=== PATIENT | male | born 1950 | race Caucasian/White ===

== ENCOUNTER → 2019-10-19 15:35 | Outpatient (CLI) | payer MEDICARE, OTHER, SELFPAY ==
--- NOTE | 2019-10-19 | DI.RAD.S_ITS ---
PROCEDURE: XR KNEE RT 3V INDICATIONS: WEIGHTBEARING BILATERAL KNEE PAIN TECHNIQUE: 3 views of the knee were acquired. COMPARISON: None. FINDINGS: Bones: No fractures or dislocations. No suspicious bony lesions. Scattered degenerative subchondral sclerosis and spurring. Mild narrowing of the medial and patellofemoral joint space. Soft tissues: Small joint effusion. No suspicious soft tissue calcifications. IMPRESSION: Mild right knee joint degeneration Dictated by: Josh Marie M.D. on 10/19/2019 at 17:13 Approved by: Josh Marie M.D. on 10/19/2019 at 17:15
--- NOTE | 2019-10-19 15:40 | DI.RAD.S_ITS ---
PROCEDURE: XR KNEE LT 3V INDICATIONS: BILATERAL KNEE PAIN TECHNIQUE: 3 views of the knee were acquired. COMPARISON: [facility], CR, XR KNEE RT 3V, 10/19/2019, 15:39. FINDINGS: Bones: No fractures or dislocations. No suspicious bony lesions. Prepatellar soft tissue swelling. Scattered degenerative subchondral sclerosis and spurring. Mild narrowing of the medial and patellofemoral joint space. IMPRESSION: Mild left knee joint degeneration. Prepatellar soft tissue swelling raising the possibility of bursitis Dictated by: Josh Marie M.D. on 10/19/2019 at 17:15 Approved by: Josh Marie M.D. on 10/19/2019 at 17:16
== END ==
PROVIDERS: Family Provider Family Medicine; PCP Family Medicine; Referring Provider Family Medicine; Visit Provider Family Medicine
DX: M25.561 Pain in right knee (principal); M25.562 Pain in left knee; M17.0 Bilateral primary osteoarthritis of knee
CPT/HCPCS: 73562

== ENCOUNTER → 2021-05-21 11:19 | Outpatient (CLI) | payer MEDICARE, OTHER, SELFPAY ==
--- NOTE | 2021-05-21 | DI.RAD.S_ITS ---
PROCEDURE: XR CERVICAL SPINE 4V OR 5V INDICATIONS: NECK PAIN TECHNIQUE: 4 views of the cervical spine acquired. COMPARISON: None. FINDINGS: Bones: No fractures or dislocations to the C7 level. Oblique images demonstrate no bony foraminal stenoses. Multilevel disc space narrowing and endplate osteophyte formation, worst at C4-C5, C5-C6, and C6-C7, indicating degenerative disc disease. Facet hypertrophy throughout the mid and lower lumbar spine. High-grade left-sided C4-C5 and C5-C6 foraminal stenosis. Moderate right-sided C3-C4 foraminal stenosis. Soft tissues: No prevertebral soft tissue swelling. IMPRESSION: 1. Multilevel degenerative disc and facet disease. Further assessment with MRI is recommended. 2. No acute fracture. No osseous lesion. If symptoms and/or clinical suspicion for pathology persist, further assessment with repeat, or advanced imaging (e.g., CT, MRI, or bone scan) may be helpful for further assessment. Dictated by: Vikram Summers M.D. on 05/21/2021 at 11:59 Approved by: Vikram Summers M.D. on 05/21/2021 at 12:00
== END ==
PROVIDERS: Family Provider Family Medicine; PCP Family Medicine; Referring Provider Chiropractor; Visit Provider Chiropractor
DX: M99.01 Segmental and somatic dysfunction of cervical region (principal); M50.321 Other cervical disc degeneration at C4-C5 level; M47.812 Spondylosis without myelopathy or radiculopathy, cervical region; M48.02 Spinal stenosis, cervical region
CPT/HCPCS: 72050

== ENCOUNTER 2022-01-26 19:11 | Emergency (ER) | payer MEDICARE, OTHER, SELFPAY ==
[2022-01-26 19:20] VITALS: BP 116/72; PULSE 80; RESP 17; TEMP 37.2; O2SAT 95; BMI 25.1
--- NOTE | 2022-01-26 19:28 | DI.US.S_ITS ---
PROCEDURE: US PERIPH VENOUS LOW EXTREM LT INDICATIONS: left leg pain behind knee and into thigh, no injury, r/o dvt TECHNIQUE: Real-time imaging, as well as color and pulse Doppler interrogation, were performed of the lower extremity deep veins from the inguinal ligament to the popliteal fossa. COMPARISON: None. FINDINGS: The common femoral, femoral and popliteal veins are normally compressible, and free of intraluminal thrombus. Color and pulse Doppler demonstrate normal phasic intraluminal flow. There is normal augmentation response to distal compression maneuver. IMPRESSION: 1. No evidence of deep venous thrombosis in the left lower extremity. Dictated by: Rolando Hammond M.D. on 01/26/2022 at 20:32 Approved by: Rolando Hammond M.D. on 01/26/2022 at 20:33
--- NOTE | 2022-01-26 20:41 | ED_ITS ---
HPI - Extremity Problem General Chief complaint: Extremity Problem,Nontraumatic Stated complaint: needs doppler done on left leg (nurse advise) Time Seen by Provider: 01/26/22 20:11 Source: patient Mode of arrival: Wheelchair History of Present Illness HPI Narrative: Patient is a 69-year-old male history of hypertension who presents with left thigh pain. He has been sitting a lot more than normal. His mom's been in the ICU and unfortunately just . Over last 24 hours he has had increasing pain it hurts to walk it is a deep ache and throbbing. He has walking some but certainly more sedentary than normal. states that she notices more swelling of his leg. No fever or chills. He denies any injury. He took aspirin [place] and ibuprofen without any relief in pain. Related Data Home Medications Medication Instructions Recorded Confirmed ECHINACEA/GOLDENSEAL (ECHINACEA 1 cap PO QDAY ##0 09/24/12 GOLDENSEAL) [MULTIVITAMIN] PO QDAY ##0 09/24/12 [VITAMIN D] PO QDAY ##0 09/24/12 ascorbic acid (vitamin C) 500 mg 500 mg PO QDAY ##0 09/24/12 tablet Previous Rx's Medication Instructions Recorded amoxicillin 875 mg-potassium 875 mg PO BID #20 tabs 04/28/16 clavulanate 125 mg tablet (Augmentin) hydrocodone 5 mg-acetaminophen 325 1 tab PO Q6H PRN pain #10 tabs 01/26/22 mg tablet Allergies Allergy/AdvReac Type Severity Reaction Status Date / Time ceftriaxone [CEFTRIAXONE] Allergy Unknown Unverified 11/18/17 13:06 Review of Systems Review of Systems Narrative: GENERAL: Denies chills,fever HEENT: Denies throat pain RESPIRATORY: Denies dyspnea, cough, wheezing CARDIOVASCULAR: Denies chest pain, palpitations GASTROINTESTINAL: Denies nausea, vomiting MUSCULOSKELETAL: See HPI SKIN: No rash, no laceration, no pruritus NEUROLOGIC: Denies weakness, dizziness, headache, numbness 8 point review of systems is negative except for those stated above and HPI Patient History Social History Smoking Status: Never smoker Smoking Status: Never smoker alcohol intake frequency: 0-2 drinks per day Substance Use Type: marijuana Exam Initial Vital Signs Initial Vital Signs: Vital Signs Temperature 98.9 F 01/26/22 19:20 Pulse Rate 80 01/26/22 19:20 Respiratory Rate 17 01/26/22 19:20 Blood Pressure 116/72 01/26/22 19:20 Pulse Oximetry 95 01/26/22 19:20 Oxygen Delivery Method 01/26/22 19:20 GENERAL: Well-appearing, well-nourished and in no acute distress. CARDIOVASCULAR: peripheral pulses in tact, cap refill <2 sec RESPIRATORY: No respiratory distress, speaks in full sentences without difficulty EXTREMITIES: Normal range of motion, no clubbing or edema. Neurovascularly i ntact Left leg no significant swelling even 1 pointed out to do not appreciated. No erythema no calf pain. No rash. Feet are warm NEUROLOGICAL: Cranial nerves II through XII grossly intact. Normal gait and speech. SKIN: Warm, dry, no petechiae, no rashes or lesions. Course Orders Ordered: ED Orders 01/26/22 19:28 US periph venous low extrem lt Stat Discontinued Medications Hydrocodone Bitart/Acetaminophen (Hydrocodone/Acet 5/325 Prepack) 1 bottle MISC SEEINSTR ONE Stop: 01/26/22 21:00 Last Admin: 01/26/22 21:03 Dose: 1 bottle Documented By: ANTHONY Vital Signs Vital signs: Vital Signs - 8 hr 01/26/22 19:20 Temperature 98.9 F Pulse Rate 80 Respiratory Rate 17 Blood Pressure 116/72 Pulse Oximetry 95 Oxygen Delivery Method Room Air MDM - Extremity (Nontraumatic) Imaging Data US - DVT: Radiologist's Impression: [address] [address] Ultrasound Report Signed Patient: Frank Giron MR#: [id number] : 1950 Acct:[id number] Age/Sex: 71 / M Date of Service: 01/26/22 Loc: ED Accession Number: [id number] ?? Procedure: US periph venous low extrem lt Ordering Provider: Roxanne Chow D.O. PROCEDURE:? US PERIPH VENOUS LOW EXTREM LT ? INDICATIONS:? left leg pain behind knee and into thigh, no injury, r/o dvt ? TECHNIQUE:? Real-time imaging, as well as color and pulse Doppler interrogation, were performed of the lower extremity deep veins from the inguinal ligament to the popliteal fossa.? ? COMPARISON:? None. ? FINDINGS:? The common femoral, femoral and popliteal veins are normally compressible, and free of intraluminal thrombus.? Color and pulse Doppler demonstrate normal phasic intraluminal flow.? There is normal augmentation response to distal compression maneuver. ? ? IMPRESSION:? ? 1. No evidence of deep venous thrombosis in the left lower extremity. ? ? Dictated by: Rolando Hammond M.D. on 01/26/2022 at 20:32 ? ? Approved by: Rolando Hammond M.D. on 01/26/2022 at 20:33 ? MDM Narrative Medical decision making narrative: The patient is having 24 hours of a left thigh pain. No obvious swelling DVT study is negative. Possible early small DVT. He has been more sedentary than usual. Does not seem like sciatic pain or musculoskeletal pain no recent injury. Discharge Plan Departure Patient Disposition: Home Clinical Impression: Left thigh pain Instructions: DI for Leg Pain Activity Restrictions/Additional Instructions: *You have been diagnosed with leg pain *What to do: At this time no evidence of DVT on ultrasound. However recommend compression socks and repeat ultrasound about 5 days. Please monitor closely for any worsening swelling redness or pain *Continue to take medications as directed [place] 1 tablet every 6 hours if needed for pain *Follow up with your primary care provider in 2-3 days or call [phone] *Return to ER if you should have increased swelling pain chest pain shortness of breath or or any new, worsening or concerning symptoms CONTROLLED SUBSTANCE DISCHARGE (Narcotoic/benzodiazepine/Flexeril/Phenergan) 1. You have been prescribed narcotic medications, it does have acetaminophen/Tylenol/paracetamol in it, DO NOT TAKE MORE THAN 4,00mg in 24 hours of Tylenol. TRAMADOL DOES NOT CONTAIN TYLENOL 2. Please understand that we cannot provide further refills of narcotics, benzodiazepines or controlled substances through the ED and her pain management will need to be through your provider. 3. While on these medications you cannot drive or operate heavy machinery. 4. You cannot sign legal documents or perform any duties such as this. 5. As long as you're taking opiate pain medications he should also be taking a stool softener such as Colace, Dulcolax, MiraLAX or prune juice, to help avoid constipation. Prescriptions: New hydrocodone-acetaminophen 5-325 mg tablet 1 tab PO Q6H PRN (Reason: pain) Qty: 10 0RF No Action [MULTIVITAMIN] PO QDAY Qty: 0 [VITAMIN D] PO QDAY Qty: 0 ascorbic acid (vitamin C) 500 MG tablet 500 mg PO QDAY Qty: 0 ECHINACEA/GOLDENSEAL (ECHINACEA GOLDENSEAL) 1 cap PO QDAY Qty: 0 amoxicillin-pot clavulanate [Augmentin] 875 MG/125 MG tablet 875 mg PO BID Qty: 20 0RF Referrals: Glenroy Camarena MD [Primary Care Provider] - Visit Report Forms: Patient Portal/API
[2022-01-26] MEDS: HYDROCODONE/ACET 5/325 PREPACK 1 BOTTLE MISC (21:03)
== END 2022-01-26 21:06 | disposition home or self-care (01) ==
PROVIDERS: Emergency Provider Emergency Medicine; Family Provider Family Medicine; PCP Family Medicine
DX: M79.652 Pain in left thigh (principal)
CPT/HCPCS: 93971; 99281; 99283

== ENCOUNTER 2022-04-15 11:26 | Day surgery (SDC) | payer MEDICARE, OTHER, SELFPAY ==
[2022-04-07 14:38] VITALS: BMI 25.1
[2022-04-15] VITALS (9 sets, daily range): BP systolic 106–129; BP diastolic 67–83; PULSE 54–64; RESP 10–23; TEMP 36.2–36.8; O2SAT 94–99; BMI 25.1
[2022-04-15] MEDS: LACTATED RINGERS 1,000 ML 100 ML IV ×2 (11:49→16:29)
[2022-04-15 12:01] LABS: COVID19 -Nasal RAPID Negative (Negative)
[2022-04-15] MEDS: ACETAMINOPHEN 325 MG TABLET 975 MG PO (13:02)
--- NOTE | 2022-04-15 13:33 | PM.PREOP ---
Pre-operative Note COVID-19 COVID-19 status: Negative Result date/Date tested (Pos, Neg/Pending): 04/11/22 Interval Note History & Physical reviewed/Exam performed by Physician: Yes Changes to H&P: No ASA Class (for procedural sedation): II
[2022-04-15] MEDS: CLINDAMYCIN 900 MG/50 ML PIGGYBACK 50 MG IV (14:27)
[2022-04-15] MEDS: LIDOCAINE 2% W/EPI INJ 20 ML INJ (14:35)
--- NOTE | 2022-04-15 14:39 | SUR.OPER ---
Supine on padded OR bed, head on pillow, arms secured on padded arm boards at <90 degrees abduction, legs uncrossed, safety belt at thigh, tape over blanket over lower legs. Position approved by surgeon and anesthesia
--- NOTE | 2022-04-15 15:52 | PM.OP.1 ---
Operative Date/Time/Diagnoses Date of procedure: 04/15/22 Time of procedure: 15:52 Pre-op diagnosis: Left inguinal hernia Procedure & Clinicians Procedure: Open left inguinal hernia repair with mesh Same procedure as scheduled: Yes Surgeon: Bear Cohen Anesthesia Type: General Operative Notes Procedure in detail: Preoperative antibiotic was administered. The patient was brought to the operating room and placed on the table in supine position general anesthesia was induced. The left groin was prepped and draped in the normal fashion and a time-out was performed. Roughly 10 mL of local anesthetic were injected into the skin and subcutaneous adipose tissue over the left groin. A 6 cm incision was made over the left inguinal canal. Dissection was carried down through the subcutaneous adipose tissue. A bridging vein was cauterized. We exposed the external oblique aponeurosis in the direction of the fibers. Additional local was injected deep to the aponeurosis. A 15 blade scalpel was used to caryn the external oblique aponeurosis. Metzenbaum scissors were used to carefully open the aponeurosis in the direction of the fibers taking care not to injure the underlying ilioinguinal nerve. We completely exposed the inguinal canal. The cord was dissected free from the inguinal ligament and floor of the inguinal canal and the external oblique aponeurosis was dissected off of the internal oblique taking care not to injure the hypogastric nerve. We encircled the cord with a Dony drain for retraction. There was a indirect left inguinal hernia. The sac was small an empty but there was a lot of bulky mesenteric or preperitoneal fatty tissue alongside the cord which was dissected free and reduced. We placed a large polypropylene mesh over the inguinal canal floor. The mesh was secured with multiple interrupted 3-0 Prolene sutures to the pubic tubercle and shelving edge of the inguinal ligament as well as to the conjoint tendon medially. We overlapped the tails to recreate an internal ring and secured the medial tail to the inguinal ligament with additional sutures. We injected some more local into the fatty tissue in the inguinal canal and cord. Finally, we removed the [address] drain and closed the external oblique fascia with a running 3-0 Vicryl suture. Skin was closed with interrupted 3-0 Vicryl dermal sutures and a running 4 Monocryl subcuticular stitch. EBL 5 mL The patient was awakened and brought to recovery room. Post-operative Condition: stable Disposition: PACU
[2022-04-15] MEDS: OXYCODONE IR 5 MG TABLET PO (16:19)
== END 2022-04-15 17:01 | disposition home or self-care (01) ==
PROVIDERS: Family Provider Family Medicine; PCP Family Medicine; Referring Provider Surgery; Visit Provider Surgery
PROC: (CPT 49505; principal; 2022-04-15 13:15)
DX: K40.90 Unilateral inguinal hernia, without obstruction or gangrene, not specified as recurrent (principal); I10 Essential (primary) hypertension; Z20.822 Contact with and (suspected) exposure to COVID-19
CPT/HCPCS: 49505; 87635; C9803; J1100; J1885; J2250; J2405; J2704; J3010

== ENCOUNTER → 2022-08-12 14:22 | Outpatient (CLI) | payer MEDICARE, OTHER, SELFPAY ==
--- NOTE | 2022-08-20 15:11 | DIAB.MNT ---
Initial Diabetes Medical Nutrition Therapy Assessment Name: Frank Giron (Mian) Date: 08/12/22 Time: 230-320p Dx: Type II Diabetes Provider: Nicol Mian presents for initial visit regarding T2DM. New diagnosis with original HgA1c 7% in 01/2022 and elevated LDL 132. 05/2022 HgA1c improved to 6.7%. +FH of DM with both parents, brother and sister. States the rest of his family was dx with Dm at a much younger age. Feels his healthy lifestyle has pushed this dx off for him until now. Mian reports he would really like to stay off any DM medications. 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 Feels he has good support and medical counseling department chair at home. Mian endorses cutting out most carbohydrates and beer for 2 months. Has questions regarding a carnivore diet rec'd by his chiropractor (only eating meat, no veggies or CHO). Diet recall indicates potential for higher saturated fat intake and limited fiber. Denies any BM issues. Endorses -25# since cutting out beer Diet Recall: 8-9a: 2 eggs, 2 chicken sausage, cottage cheese 12-1p: nuts, jerky, celery, PB, summer sausage 230-3p: nothing or 4-5c popcorn with butter 530-630p: veggies, meat Beverages: 3c coffee with half n half, 16oz x 3 water, 4 servings of wine Anthropometrics: Ht: 5'10 Wt: 165# reported Physical Activity: No intentional exercise program. Endorses daily physical activity with projects. Self-Monitoring Blood Glucose: None. Waiting on meter from pharmacy currently. Diabetes Medications: None Pertinent Labs: 01/2022 HgA1c 7% LDL 132 05/2022 6.7% Past Medical History: (Last Reviewed 05/05/22 @ 11:07 by Farrah Romero RN) Hypertension Nutrition Rx: Heart healthy/CCD Nutrition Diagnosis: - Predicted excessive saturated fat intake r/t limited all CHO and increased meat/cheese intake aeb diet recall - Excessive ETOH intake r/t >2 servings per day aeb diet recall Intervention: This participant was very receptive. Provided appropriate educational handouts. Discussed the following topics: Completed intake assessment. Discussed barriers to care. Importance of self-monitoring, how often, and when to check. Suggested checking at different times to evaluate meals hgA1c goals and recommendations Complex vs simple CHO Importance of fiber for health, DM, BM, and lipids Heart health nutrition Role of physical activity ETOH recommendations Pro/cons to oral DM medications Created SMART goals for patient self-care and success. Goals: Check BG 1-2 x per day FBG and/or 1-2 hour pc Follow-up: OSBALDO YEPEZ follow-up in 3-4 weeks Marva Geller RDN, [facility] Certified Diabetes Care and Sales And Service Specialist P: [phone] Thank you for this referral
== END ==
PROVIDERS: Family Provider Family Medicine; PCP Family Medicine; Referring Provider Family Medicine; Visit Provider Family Medicine
DX: E11.9 Type 2 diabetes mellitus without complications (principal); Z71.3 Dietary counseling and surveillance
CPT/HCPCS: 97802

== ENCOUNTER → 2022-09-16 13:43 | Outpatient (CLI) | payer MEDICARE, OTHER, SELFPAY ==
--- NOTE | 2022-10-06 13:27 | DIAB.MNTFU ---
Follow-up Diabetes Medical Nutrition Therapy Assessment Name: Frank Giron (Mian) Date: 09/16/22 Time: 2-240p Dx: Type II Diabetes Mian presents for follow-up DM visit. States he has not completed a new HgA1c yet, but plans to update this RD once he has new results this month. Continues on low carb diet. Some high saturated fat intake (salami, cheese, red meat), concerns for elevated cholesterol. Does incorporate some high fiber foods, ie popcorn, nuts, beans. Tries to eat low Na options. Has cut back on PB lately. Diet Recall: B: eggs, cheese, veggie L: nuts, popcorn, cheese, salami D: meatballs, salad with beans Beverages: water, coffee, wine x 2 servings Anthropometrics: Ht: 5'10 Wt: 165-168# reported Weight history: -20# from [facility] per report,. Sustained wt since last visit. Physical Activity: Joined a gym. Treadmill 3x per week, vigorous per report. Self-Monitoring Blood Glucose: Date Pre Post Pre Post Pre Post HS 09/05 116 09/06 115 09/07 121 09/08 108 09/09 114 09/10 123 09/11 1 Diabetes Medications: Pertinent Labs: Past Medical History: (Last Reviewed 05/05/22 @ 11:07 by Farrah Romero RN) Hypertension Nutrition Rx: Carbohydrates: Daily: Meal: Snack: Nutrition Diagnosis: Intervention: This participant was very receptive. Provided appropriate educational handouts. Discussed the following topics: Blood sugar review and trends. Impact of food intake on results. Plate Method, impact of macronutrients on blood sugar, meal timing, carbohydrate counting, pairing macronutrients and spreading out carbohydrates for better blood glucose management Heart health nutrition: fats, fiber, and sodium Eating out and grocery shopping tips Meal planning and carb counting review Physical activity plan and progress Created SMART goals for patient self-care and success. Goals: Follow-up: OSBALDO YEPEZ follow-up in 2-3 weeks Marva Geller RDN, [facility] Certified Diabetes Care and Fountain Roller Assembler P: [phone] Thank you for this referral
--- NOTE | 2022-10-06 13:37 | DIAB.MNTFU ---
Follow-up Diabetes Medical Nutrition Therapy Assessment Name: Frank Giron (Mian) Date: 09/16/22 Time: 2-240p Dx: Type II Diabetes Provider: Nicol Pappas presents for follow-up DM visit. States he has not completed a new HgA1c yet, but plans to update this RD once he has new results this month. Continues on low carb diet. Some high saturated fat intake (salami, cheese, red meat), concerns for elevated cholesterol. Does incorporate some high fiber foods, ie popcorn, nuts, beans. Tries to eat low Na options. Has cut back on PB lately. Diet Recall: B: eggs, cheese, veggie L: nuts, popcorn, cheese, salami D: meatballs, salad with beans Beverages: 32oz water, 3c coffee, wine x 2 servings Anthropometrics: Ht: 5'10 Wt: 165-168# reported Weight history: -20# from [facility] per report,. Sustained wt since last visit. Physical Activity: Joined a gym. Treadmill 3x per week, vigorous per report. Self-Monitoring Blood Glucose: Started checking BG and all in goal. Date Pre Post Pre Post Pre Post HS 09/05 116 09/06 115 09/07 121 09/08 108 09/09 114 09/10 123 09/11 122 Diabetes Medications: None Pertinent Labs: 01/2022 HgA1c 7% LDL 132 05/2022 6.7% Past Medical History: (Last Reviewed 05/05/22 @ 11:07 by Farrah Romero RN) Hypertension Nutrition Rx: Heart healthy/CCD Nutrition Diagnosis: - Predicted excessive saturated fat intake r/t limited all CHO and increased meat/cheese intake aeb diet recall- continued - Excessive ETOH intake r/t >2 servings per day aeb diet recall- improved - Predicted inadequate water intake r/t coffee replacing water aeb diet recall- new Intervention: This participant was very receptive. Provided appropriate educational handouts. Discussed the following topics: Reviewed saturated fat and fiber intake and impact on lipids Encouraged adequate water intake Pro/cons to oral DM medications vs statin if cholesterol cont to be elevated Created SMART goals for patient self-care and success. Goals: Check BG 1-2 x per day FBG and/or 1-2 hour pc- met Restart celery and PB- new Aim for 1/2c beans daily to support fiber intake- new Aim for 5c+ of water daily- new Follow-up: OSBALDO YEPEZ follow-up prnHardy Pappas plans to call for follow-up as needed. Marva Geller, OSBALDO, [facility] Certified Diabetes Care and Cook Chill Technician P: [phone] Thank you for this referral
== END ==
PROVIDERS: Family Provider Family Medicine; PCP Family Medicine; Referring Provider Family Medicine; Visit Provider Family Medicine
DX: E11.9 Type 2 diabetes mellitus without complications (principal); Z71.3 Dietary counseling and surveillance; I10 Essential (primary) hypertension
CPT/HCPCS: 97803

== ENCOUNTER → 2023-11-05 08:00 | Outpatient (CLI) | payer MEDICARE, OTHER, SELFPAY | LOC: LAB 11-06 09:54 | PROVIDERS: Family Provider Family Medicine; PCP Family Medicine; Referring Provider Family Medicine; Visit Provider Surgery | DX: Z53.9 Procedure and treatment not carried out, unspecified reason (principal) ==

== ENCOUNTER → 2023-12-01 10:29 | Outpatient (CLI) | payer MEDICARE, OTHER, SELFPAY | LOC: RESP 10:32 | PROVIDERS: Family Provider Family Medicine; PCP Family Medicine; Referring Provider Plastic Surgery; Visit Provider Plastic Surgery | DX: I10 Essential (primary) hypertension (principal) | CPT/HCPCS: 93005 ==

== ENCOUNTER 2023-12-08 08:45 | Day surgery (SDC) | payer MEDICARE, OTHER, SELFPAY ==
--- NOTE | 2023-12-08 | PATH_ITS ---
[facility] Accession Number: [id number] No. of containers..01 Tissue . 01 Material submitted: . colon - ASCENDING COLON POLYP . 01 Diagnosis: A. ASCENDING COLON POLYP, POLYPECTOMY: Tubular adenoma. MRV 12/14/2023 1502 Local . 01 Electronically signed: . Becca Fowler MD, Pathologist NPI- [id number] . 01 Gross description: . ASCENDING COLON POLYP: Received in formalin is 1 fragment(s) of mtz, soft tissue measuring 0.2 x 0.2 x 0.1 cm submitted entirely in 1 cassette(s) /PITA 12/10/2023 0140 Local . 01 Microscopic: . Deeper Levels examined. . 01 Pathologist provided ICD-10: D12.6 . 01 CPT . 371569 Specimen Comment: A courtesy copy of this report has been sent to [phone] Performed at: 01 [facility] [address] [place] [address], [place], [place] [id number] MD Rolando Nicole MD Phone: [phone]
[2023-12-08 09:05] VITALS: BP 136/71; PULSE 65; RESP 17; TEMP 36.1; O2SAT 98
[2023-12-08] MEDS: LACTATED RINGERS 1,000 ML 42 ML IV (09:11)
--- NOTE | 2023-12-08 09:45 | P.HP_ITS ---
History of Present Illness History of Present Illness Date Patient Seen: 12/08/23 Time Patient Seen: 09:45 Chief complaint: Colonoscopy Narrative: 72-year-old man here for screening colonoscopy. Personal history of colonic polyps last colonoscopy 5 years ago. No abdominal concerns today. No family history of intestinal malignancy. [facility], [facility] Medical History Inguinal hernia Carpal tunnel syndrome of right wrist Hypertension Social History household members: spouse Smoking Status: Never smoker alcohol intake: current Meds Home Medications and Allergies Home Medications Medication Instructions Recorded Confirmed Type [MULTIVITAMIN] PO QDAY ##0 09/24/12 04/07/22 History [VITAMIN D] PO QDAY ##0 09/24/12 04/07/22 History ascorbic acid (vitamin C) 500 mg 500 mg PO QDAY ##0 09/24/12 04/07/22 History tablet acyclovir 800 mg tablet 800 mg PO TID 04/07/22 04/07/22 History lisinopril 10 mg tablet 10 mg PO DAILY 04/07/22 12/08/23 History omeprazole 20 mg capsule,delayed 20 mg PO DAILY 04/07/22 12/08/23 History release sodium,potassium,mag sulfates 17.5 See Rx Instructions PO .COMPLEX 10/20/23 Rx gram-3.13 gram-1.6 gram oral soln #354 mL (Suprep Bowel Prep Kit) Allergies Allergy/AdvReac Type Severity Reaction Status Date / Time ceftriaxone [CEFTRIAXONE] Allergy Mild Hives Verified 12/08/23 09:01 Exam Vital Signs (past 8 hours): - 12/08/23 09:05 Temperature 97 F L Pulse Rate 65 Respiratory Rate 17 Blood Pressure 136/71 Pulse Oximetry 98 Oxygen Delivery Method Room Air Oxygen Delivery Method Room Air Narrative Exam Narrative: General adult man alert oriented no acute distress Chest nonlabored respiration Extremities warm well perfused Assessment & Plan Assessment & Plan narrative: The patient requires colorectal screening and colonoscopy is recommended. Technical details were discussed. Risks, benefits, alternatives explained. Risks including but not limited to myocardial infarction, aspiration, bleeding, pain, missed lesion, incomplete examination, need for further radiographic studies, intestinal injury, and need for major abdominal surgery were discussed. All questions were answered to their satisfaction, and they are in agreement with this plan.
[2023-12-08 10:10] VITALS: BP 110/68; PULSE 64; RESP 13; TEMP 36.2; O2SAT 94
--- NOTE | 2023-12-08 10:12 | P.OP.COLON_ITS ---
Operative Date/Time/Diagnoses Date of procedure: 12/08/23 Time of procedure: 10:12 Pre-op diagnosis: Personal history of colonic polyps Procedure & Clinicians Study performed: Screening Indications: Colorectal screening Surgeon: Yung Longoria Procedure Notes Procedure in detail: The history and physical was performed/updated and the patient is ASA class is 2. The procedure was discussed in detail with the patient. Potential risks complications including infection, bleeding, missed diagnosis, perforation, need for surgery, and were explained. Their questions were answered and informed consent was obtained. Patient was brought to the procedure room and placed standard monitoring equipment. The patient's vital signs were monitored continuously throughout the entire procedure. Prior to starting time-out was performed. The patient was placed in the left lateral recumbent position. Procedural sedation was administered by anesthesia. Examination began with a thorough inspection of the perianal area there was no evidence of fissures, fistulae, external hemorrhoids or cutaneous malignancy. The colonoscopy scope was then placed into the anal canal and was advanced to the cecum, which was identified by the ileocecal valve, the appendiceal orifice and the confluence of the taenia. The scope was then slowly withdrawn examining colon thoroughly in all directions, irrigating it of any residual stool. The scope was retroflexed within the rectum The patient tolerated the procedure well. They will be discharged once criteria are met. The prep was of fair quality. The withdrawl time was 7 minutes. FINDINGS * Ascending colon 5 mm polyp removed with biopsy forceps. * Parikh diverticulosis * Internal hemorrhoids Specimen(s): other (Ascending colon polyp) Impression: Colonic polyp x1 Post-procedure Recommendations: High fiber diet Plan for aftercare: Follow-up is dependent on pathology findings. Disposition: same day surgery
[2023-12-08 10:16] VITALS: BP 111/70; PULSE 64; RESP 14; O2SAT 94
[2023-12-08 10:20] VITALS: BP 112/71; PULSE 58; RESP 14; O2SAT 95
[2023-12-08 10:25] VITALS: BP 100/63; PULSE 72; RESP 14; O2SAT 97
[2023-12-08 10:28] VITALS: BP 104/62; PULSE 60; RESP 16; O2SAT 99
== END 2023-12-08 10:40 | disposition home or self-care (01) ==
PROVIDERS: Surgery; Family Provider Family Medicine; PCP Family Medicine; Referring Provider Surgery; Visit Provider Surgery
PROC: 0DJD8ZZ Inspection of Lower Intestinal Tract, Via Natural or Artificial Opening Endoscopic (ICD-10-PCS; CPT 45378; principal; 2023-12-08 09:45)
DX: Z12.11 Encounter for screening for malignant neoplasm of colon (principal); Z86.010 Personal history of colon polyps; K57.30 Diverticulosis of large intestine without perforation or abscess without bleeding; K64.8 Other hemorrhoids; D12.2 Benign neoplasm of ascending colon
CPT/HCPCS: 45380; J2704

== ENCOUNTER → 2024-10-06 11:18 | Outpatient (CLI) | payer MEDICARE, OTHER, SELFPAY ==
--- NOTE | 2024-10-06 11:20 | DI.RAD.S_ITS ---
PROCEDURE: XR FOOT RT 2V INDICATIONS: Gout, unspecified TECHNIQUE: 3 views of the foot were acquired. COMPARISON: None. FINDINGS: Bones: No fractures or dislocations. No suspicious bony lesions. Prominent 1st MTP and 1st DIP degenerative narrowing. Small periarticular osteophytes are present. Small areas of subchondral lucency are present. In addition, small areas of subchondral lucency are also noted at the 5th DIP and PIP joints. Calcaneal spur. Soft tissues: No tibiotalar joint effusion. Achilles tendon appears normal. IMPRESSION: Areas of subchondral lucency as above. While these could represent erosions given history of gout, other etiology such as subchondral cysts cannot be definitively excluded. Dictated by: Gavi Simons M.D. on 10/06/2024 at 16:59 Approved by: Gavi Simons M.D. on 10/06/2024 at 17:00
--- NOTE | 2024-10-06 11:21 | DI.RAD.S_ITS ---
PROCEDURE: XR FOOT LT 2V INDICATIONS: Gout, unspecified TECHNIQUE: 3 views of the foot were acquired. COMPARISON: None. FINDINGS: Bones: Severe 1st MTP d narrowing with subchondral sclerosis and periarticular osteophytes. Small areas of subchondral lucency are present at the 1st DIP joint and to a lesser degree the 1st PIP joint. Small lucencies are also present at the DIP joint of the 3rd and 5th digits. Soft tissues: No tibiotalar joint effusion. Achilles tendon appears normal. IMPRESSION: Scattered areas of lucency possibly representing rosea is given history of gout. However, cannot exclude arthritic cystic change. Dictated by: Gavi Simons M.D. on 10/06/2024 at 17:00 Approved by: Gavi Simons M.D. on 10/06/2024 at 17:00
== END ==
PROVIDERS: Family Provider Family Medicine; PCP Family Medicine; Referring Provider Family Medicine; Visit Provider Family Medicine
DX: M10.9 Gout, unspecified (principal)
CPT/HCPCS: 73620

== ENCOUNTER → 2024-11-30 07:31 | Outpatient (CLI) | payer MEDICARE, OTHER, SELFPAY ==
--- NOTE | 2024-11-30 07:34 | DI.MRI.S_ITS ---
PROCEDURE: MR ANKLE RT WO CON INDICATIONS: right ankle pain TECHNIQUE: Noncontrast sagittal T1 spin echo and T2 fast spin echo with fat saturation, axial proton density fast spin echo and T2 fast spin echo with fat saturation, coronal T1 spin echo and T2 fast spin echo with fat saturation through the ankle/hindfoot. COMPARISON: [facility], CR, XR ANKLE RT 2V, 11/30/2024, 7:34. [facility], CR, XR FOOT RT 2V, 11/30/2024, 7:34. [facility], CR, XR FOOT RT 2V, 10/06/2024, 11:17. FINDINGS: Image quality: Excellent. Bones: Subchondral cyst formation and mild marrow edema is present at the tip of the medial malleolus and medial talar body (03/01; 6; 11/24) as well as the medial tibial plafond (03/05). The anterior process of the calcaneus and lateral process of the talus are intact. There is a 0.7 x 0.6 x 1.2 cm lateral talar dome subchondral cyst versus developing osteochondral defect (8/; 5/9; 6/9), without evidence of a free-floating fragment or a fluid cleft. Joints: There is a moderate tibiotalar joint effusion that likely decompresses into the flexor hallucis longus tendon sheath (6/). There is hindfoot varus tilt of the talus relative to the distal tibia, with asymmetric widening of the lateral clear space (/25). 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 Sinus tarsi: The sinus tarsi signal is normal. Syndesmotic ligaments: There is low signal thickening of the anterior inferior syndesmotic ligament with widening of the distal tibiofibular space. There is low signal thickening of the inferior portion of the intraosseous membrane (3/12). There is mild low signal thickening of the posterior inferior syndesmotic ligament. Lateral collateral ligament: There is low signal thinning of the anterior talofibular ligament (4/21). There is intermediate signal thickening of the posterior talofibular ligament as well as the calcaneofibular ligament. Deltoid ligament: Heterotopic ossification is present along the course of the posterior tibiotalar ligament along with tearing of the superficial deltoid ligament. The tibiospring ligament is intact. Calcaneonavicular spring ligament: The superomedial component of the calcaneonavicular spring ligament is intact with mild intermediate signal. Tendons: Circumferential fluid is present in the flexor hallucis longus tendon sheath at its intersection with the flexor digitorum longus at the level of the calcaneocuboid joint (12/07). Mild circumferential fluid is present within the tendon sheath of the tibialis posterior as it courses along the hindfoot (11/15-). There is intermediate signal of the peroneal tendons along with a split tear of the peroneus brevis with distal reconstitution at the level of the anterior calcaneus (11/20-). The Achilles tendon is normal. There is a mildly convex contour of the retromalleolar groove housing the peroneal tendons (10/24). The superficial peroneal retinaculum is intact. Plantar aponeurosis: There is no abnormal thickening of, abnormal intrasubstance signal involving, or perifascial edema about the plantar aponeurosis. Plantar musculature: There are no findings of denervation involving the plantar muscles of the foot. Nerves: The visualized nerves are unremarkable. Other: Osteophyte formation versus sequelae of a prior fracture at the medial malleolus is present, which contacts the distal flexor hallucis longus muscle belly (10/20). IMPRESSION: 1. Likely chronic tearing and scarring of the syndesmotic ligaments, lateral collateral ligaments, and the posterior tibiotalar ligament of the deltoid ligament complex, with secondary mild tibiotalar/subtalar osteoarthritis and hindfoot varus. 2. Possible [place] intersection syndrome involving the flexor hallucis longus and flexor digitorum longus. 3. Mild tibialis posterior tenosynovitis. 4. Mild tendinosis of the peroneal tendons, along with a split tear of the peroneus brevis. 5. Lateral talar dome 1.2 cm subchondral cyst versus developing osteochondral defect without MR evidence of instability. 6. Mild sprain of the calcaneonavicular spring ligament. Dictated by: Tito Blanc M.D. on 12/06/2024 at 10:28 Approved by: Tito Blanc M.D. on 12/06/2024 at 11:17
--- NOTE | 2024-11-30 07:35 | DI.RAD.S_ITS ---
PROCEDURE: XR ANKLE LT 2V INDICATIONS: FOOT PAIN TECHNIQUE: 2 views of the ankle were acquired. COMPARISON: None. FINDINGS: Bones: There is slight varus at the tibiotalar joint with weight-bearing. No acute fracture or dislocation. Mild midfoot and hindfoot joint osteoarthritic changes are seen. Ankle mortise is normally aligned. No suspicious bony lesions. Soft tissues: No tibiotalar joint effusion. Achilles tendon appears normal. IMPRESSION: Mild varus at tibiotalar joint with weight-bearing. No acute fracture or dislocation. Mild midfoot and hindfoot joint osteoarthritis. Dictated by: Milan Palm M.D. on 11/30/2024 at 12:58 Approved by: Milan Palm M.D. on 11/30/2024 at 12:59
--- NOTE | 2024-11-30 07:35 | DI.RAD.S_ITS ---
PROCEDURE: XR FOOT RT 2V INDICATIONS: FOOT PAIN TECHNIQUE: 2 views of the foot were acquired. COMPARISON: [facility], CR, XR FOOT RT 2V, 10/06/2024, 11:17. FINDINGS: Bones: Normal alignment with weight bearing pulmonary a No fractures or dislocations. Osteoarthritic changes are noted throughout right foot more notably in great toe and 5th PIP joint. No gross bony erosive changes. No suspicious bony lesions. Soft tissues: No tibiotalar joint effusion. Achilles tendon appears normal. IMPRESSION: No acute right foot fracture or dislocation. Osteoarthritic changes throughout right foot not significantly changed from prior study. Dictated by: Milan Palm M.D. on 11/30/2024 at 12:56 Approved by: Milan Palm M.D. on 11/30/2024 at 12:57
--- NOTE | 2024-11-30 07:35 | DI.RAD.S_ITS ---
PROCEDURE: XR FOOT LT 2V INDICATIONS: FOOT PAIN TECHNIQUE: 2 views of the foot were acquired. COMPARISON: [facility], CR, XR FOOT RT 2V, 10/06/2024, 11:17. FINDINGS: Bones: There is normal alignment with weight bearing. No fractures or dislocations. Moderate osteoarthritic changes are seen at 1st MTP joint and 1st interphalangeal joint. Pryc-do-yoqdukzv osteoarthritic changes are noted throughout rest of the left foot. Tiny plantar calcaneal enthesophyte is seen. No suspicious bony lesions. Soft tissues: No tibiotalar joint effusion. Achilles tendon appears normal. IMPRESSION: Normal left foot alignment with weight bearing. Moderate great toe osteoarthritis. Nhxa-sm-absfuzma osteoarthritis in rest of left foot. No acute fracture or dislocation. Tiny plantar calcaneal enthesophyte. Dictated by: Milan Palm M.D. on 11/30/2024 at 12:57 Approved by: Milan Palm M.D. on 11/30/2024 at 12:58
--- NOTE | 2024-11-30 07:35 | DI.RAD.S_ITS ---
PROCEDURE: XR ANKLE RT 2V INDICATIONS: FOOT PAIN TECHNIQUE: 2 views of the ankle were acquired. COMPARISON: None. FINDINGS: Bones: Mild varus at tibiotalar joint is seen. Moderate tibiotalar and subtalar joint osteoarthritic changes are seen. No acute fractures or dislocations. Ankle mortise is normally aligned. No suspicious bony lesions. Soft tissues: Mild ankle soft tissue swelling is seen with suggestion of small to moderate tibiotalar joint effusion. Achilles tendon appears normal. IMPRESSION: Mild varus at tibiotalar joint. Moderate tibiotalar and subtalar joint osteoarthritis. No acute fracture or dislocation. Mild ankle soft tissue swelling. Small to moderate tibiotalar joint effusion. Dictated by: Milan Palm M.D. on 11/30/2024 at 12:59 Approved by: Milan Palm M.D. on 11/30/2024 at 13:00
== END ==
LOC: MRI 07:32
PROVIDERS: Family Provider Family Medicine; PCP Family Medicine; Referring Provider Podiatrist Foot & Ankle Surgery; Visit Provider Podiatrist Foot & Ankle Surgery
DX: S93.491A Sprain of other ligament of right ankle, initial encounter (principal); S96.811A Strain of other specified muscles and tendons at ankle and foot level, right foot, initial encounter; M19.071 Primary osteoarthritis, right ankle and foot; M19.072 Primary osteoarthritis, left ankle and foot; M79.671 Pain in right foot; M79.672 Pain in left foot; M21.172 Varus deformity, not elsewhere classified, left ankle; M21.171 Varus deformity, not elsewhere classified, right ankle; M79.89 Other specified soft tissue disorders; M25.471 Effusion, right ankle; M65.971 Unspecified synovitis and tenosynovitis, right ankle and foot
CPT/HCPCS: 73600; 73620; 73721

== ENCOUNTER 2025-07-10 18:11 | Emergency (ER) | payer MEDICARE, OTHER, SELFPAY ==
[2025-07-10] VITALS (11 sets, daily range): BP systolic 129–157; BP diastolic 70–92; PULSE 53–82; RESP 9–24; TEMP 36.6; O2SAT 91–96
--- NOTE | 2025-07-10 18:44 | DI.CT.S_ITS ---
PROCEDURE: CT HEAD/BRAIN WO CON INDICATIONS: confusion, time lost, ? global transient amnesia TECHNIQUE: Noncontrast 4.5 mm thick angled axial sections acquired from the foramen magnum to the vertex, with coronal and sagittal reformats. For radiation dose reduction, the following was used: automated exposure control, adjustment of mA and/or kV according to patient size. COMPARISON: [facility], CT, CT ANGIO HEAD AND NECK, 07/10/2025, 18:46. FINDINGS: Image quality: Diagnostic. CSF spaces: Basal cisterns are patent. No extra-axial fluid collections. The ventricles are symmetric in size and shape. Brain: No intracranial bleeds or mass effect. There is cerebral volume loss, with resultant ventricular and sulcal prominence. There are periventricular and deep white matter chronic small vessel ischemic changes. There is intracranial internal carotid artery atherosclerosis. Skull and face: Calvarium and visualized facial bones appear intact, without suspicious lesions. Sinuses: Visualized sinuses and mastoids are clear. IMPRESSION: 1. No acute intracranial process. 2. Moderate atrophy and chronic microvascular ischemic changes. Dictated by: Gavi Simons M.D. on 07/10/2025 at 19:27 Approved by: Gavi Simons M.D. on 07/10/2025 at 19:28
--- NOTE | 2025-07-10 18:45 | EKG_ITS ---
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
--- NOTE | 2025-07-10 18:45 | DI.CT.S_ITS ---
PROCEDURE: CT ANGIO HEAD AND NECK INDICATIONS: confusion, time lost, ? global transient amnesia TECHNIQUE: After the administration of intravenous contrast, 1 mm thick sections acquired from the aortic arch through the [place] of [place]. 3-dimensional tojtpjb-[id number]-cuimfbpbhb (MIP) and/or volume rendering reformats were acquired of the central intracranial vasculature and neck separately. For radiation dose reduction, the following was used: automated exposure control, adjustment of mA and/or kV according to patient size. COMPARISON: [facility], CT, CT HEAD/BRAIN WO [facility], 07/10/2025, 18:46. FINDINGS: Image quality: Diagnostic. Cerebral CT Angiogram: Internal carotid arteries: No acute findings. Intracranial ICA are patent with no significant stenosis. No occlusion. No aneurysm. Anterior cerebral arteries: Unremarkable. No significant stenosis. No occlusion. No aneurysm. Middle cerebral arteries: Unremarkable. No significant stenosis. No occlusion. No aneurysm. Posterior cerebral arteries: Unremarkable. No significant stenosis. No occlusion. No aneurysm. Basilar artery: Unremarkable. No significant stenosis. No occlusion. No aneurysm. Vertebral arteries: Unremarkable as visualized. Vertebral arteries are codominant. Dural venous sinuses: Unremarkable given phase of enhancement. Other: Arterial phase appearance of the brain parenchyma is unremarkable. Neck CT Angiogram: Internal carotid arteries: Unremarkable. No significant stenosis. No dissection or occlusion. Common carotid arteries: Unremarkable. No significant stenosis. No dissection or occlusion. External carotid arteries: Unremarkable. No occlusion. Vertebral arteries: Unremarkable. No significant stenosis. No dissection or occlusion. Aortic Arch and Mediastinum: Partially visualized aortic arch unremarkable without evidence of aneurysm. Origins of the great vessels unremarkable. Other: Arterial phase soft tissues of the neck and chest are unremarkable. IMPRESSION: No significant intracranial arterial abnormality is seen. No significant abnormality is seen within the arteries of the neck. Any quantitative measurements of stenosis were performed using NASCET criteria. Dictated by: Gavi Simons M.D. on 07/10/2025 at 19:29 Approved by: Gavi Simons M.D. on 07/10/2025 at 19:30
--- NOTE | 2025-07-10 18:46 | ED.AMS ---
HPI - Altered Mental Status General Chief Complaint: Altered Mental Status Stated Complaint: confusion Time Seen by Provider: 07/10/25 18:33 Source: patient, RN notes reviewed and old records reviewed Mode of arrival: Ambulatory Limitations: no limitations History of Present Illness HPI narrative: 74-year-old male history of hypertension diabetes, dyslipidemia with no anticoagulants who presents with complaint of altered mental status. Patient states earlier today during the afternoon he went to [employer] changes oil in his car when his got home he did not recall all of the events. He has started to recall some of them but she states that she did not even recall having a conversation with her about not remembering anything. Both patient and his state that he has not had any facial droop, no difficulty with movement, no slurred or dysarthric speech. Just seems to be missing a period of time today his memory seems to be improving over time. They do not feel that he is persistently confused. He states he felt kind of tired earlier but denies any other symptoms. No fevers. No headache, no vision changes, no chest pain or shortness of breath, no double vision, no numbness, tingling or weakness, no difficulty with gait. No loss of bowel or bladder control. No nausea or vomiting no other GI or urinary symptoms. Patient has not had similar symptoms in the past. States he takes lisinopril, metformin, vitamins in his statin daily. Denies any aspirin or thinners. Has had prior hernia repair and finger surgeries but no prior cardiac surgeries. Reports an allergy to Rocephin. No tobacco, drinks several drinks nightly, occasional marijuana no recreational drugs. He has not had any alcohol today. He presents with his . Related Data Home Medications ?Medication ?Instructions ?Recorded ?Confirmed [MULTIVITAMIN] PO QDAY ##0 09/24/12 04/07/22 [VITAMIN D] PO QDAY ##0 09/24/12 04/07/22 ascorbic acid (vitamin C) 500 mg 500 mg PO QDAY ##0 09/24/12 04/07/22 tablet acyclovir 800 mg tablet 800 mg PO TID 04/07/22 04/07/22 lisinopril 10 mg tablet 10 mg PO DAILY 04/07/22 12/08/23 omeprazole 20 mg capsule,delayed 20 mg PO DAILY 08/29/22 04/30/24 release Previous Rx's ?Medication ?Instructions ?Recorded sodium,potassium,mag sulfates 17.5 See Rx Instructions PO .COMPLEX 10/20/23 gram-3.13 gram-1.6 gram oral soln #354 mL (Suprep Bowel Prep Kit) Allergies Allergy/AdvReac Type Severity Reaction Status Date / Time ceftriaxone (CEFTRIAXONE) Allergy Mild Hives Verified 12/08/23 09:01 Review of Systems Review of Systems ROS Unobtainable: All systems reviewed & are unremarkable except as noted in HPI and below Patient History Medical History Inguinal hernia Carpal tunnel syndrome of right wrist Hypertension Social History household members: spouse Smoking Status: Smoker, status unknown alcohol intake: current Smoking Status: Smoker, status unknown alcohol intake frequency: 0-2 drinks per day Exam Narrative Exam Narrative: GEN: well nourished, well appearing male, alert and oriented x 3, patient appears to be in mild distress. HEENT: Atraumatic, pupils are equal round reactive to light, extraocular movements are intact, nares are clear, there is no conjunctival pallor. Throat is clear without any exudates, erythema, tonsillar enlargement or uvular deviation, no facial droop, no meningeal signs HEART: Regular rate and rhythm without murmur, clicks, rubs. Pulses are equal in upper and lower extremities LUNGS:Lungs clear to auscultation, no wheezes, rales, crackles, chest moves symmetrically ABD:bowel sounds normal, soft, non-tender, no guarding, rebound, rigidity, no masses noted, no hepatosplenomegaly :No CVA tenderness MSCL: Non-tender, no muscle atrophy, muscles strength 5/5 upper and lower extremities, full range of motion, normal gait NEURO:CN 2-12 intact, sensation normal, finger nose finger test normal, heel bowser test normal. Initial Vital Signs Initial Vital Signs: Vital Signs Temperature 98 F 07/10/25 18:31 Pulse Rate 82 07/10/25 18:31 Respiratory Rate 17 07/10/25 18:31 Blood Pressure 150/92 H 07/10/25 18:31 Pulse Oximetry 95 07/10/25 18:31 Oxygen Delivery Method Room Air 07/10/25 18:31 Scores NIH Stroke Scale Level of Conciousness: Alert, keenly responsive Ask month/age: Answers both questions correctly. Open/close eyes, close hand: Performs both tasks correctly Best gaze horizontal: Normal Visual velasquez: No visual loss Facial palsy: Normal symetrical movement Left arm drift: No drift for full 10 sec Right arm drift: No drift for full 10 sec Left leg drift: No drift for full 5 sec Right leg drift: No drift for full 5 sec Limb ataxia: Absent Sensory on face/arms/legs: Normal, no sensory loss Best language: No aphasia, normal Dysarthria: Normal Extinction or inattention: No abnormality Total NIH Stroke scale score: 0 Course Orders Ordered: ED Orders 07/10/25 18:44 CT head/brain wo con Stat 07/10/25 18:45 CT angio head and neck Stat EKG-12 Lead Stat EKG-12 Lead Stat 07/10/25 18:52 Complete Blood Count AUTO DIFF Stat Comprehensive Metabolic Panel Stat Ethanol (ETOH) Stat PTT Partial Thromboplastin Paolo Stat Prothrombin Time INR Stat Troponin & CK Cardiac Panel Stat 07/10/25 19:35 Covid-19 + FLU A/B + RSV - PCR Stat 07/10/25 19:53 Urinalysis and Microscopic Stat Discontinued Medications Sodium Chloride (Normal Saline 0.9%) 1,000 mls @ 150 mls/hr IV CONT DOM Last Admin: 07/10/25 19:49 Dose: 150 mls/hr Documented By: [facility] Vital Signs Vital signs: Vital Signs - 8 hr 07/10/25 18:31 07/10/25 19:21 07/10/25 19:24 Temperature 98 F Pulse Rate 82 53 L Respiratory Rate 17 Blood Pressure 150/92 H 157/74 H Pulse Oximetry 95 96 Oxygen Delivery Method Room Air 07/10/25 19:24 07/10/25 19:30 07/10/25 19:30 Temperature Pulse Rate 65 68 Respiratory Rate 21 18 Blood Pressure 152/82 H Pulse Oximetry 94 96 Oxygen Delivery Method 07/10/25 19:45 07/10/25 19:45 07/10/25 20:00 Temperature Pulse Rate 70 Respiratory Rate 24 Blood Pressure 157/73 H 137/79 Pulse Oximetry 91 Oxygen Delivery Method 07/10/25 20:00 07/10/25 20:15 07/10/25 20:15 Temperature Pulse Rate 63 61 Respiratory Rate 14 9 L Blood Pressure 140/82 Pulse Oximetry 96 95 Oxygen Delivery Method Room Air 07/10/25 20:30 07/10/25 20:30 07/10/25 20:46 Temperature Pulse Rate 67 Respiratory Rate 13 Blood Pressure 129/85 148/71 H Pulse Oximetry 96 Oxygen Delivery Method 07/10/25 20:46 07/10/25 21:00 07/10/25 21:01 Temperature Pulse Rate 62 62 Respiratory Rate 13 16 Blood Pressure 138/70 Pulse Oximetry 93 94 Oxygen Delivery Method 07/10/25 21:01 Temperature Pulse Rate 61 Respiratory Rate 17 Blood Pressure Pulse Oximetry 94 Oxygen Delivery Method MDM - Altered Mental Status Lab Data 07/10/25 18:52 07/10/25 18:52 Labs: Lab Results 07/10/25 07/10/25 07/10/25 Range/Units 18:52 19:35 19:53 WBC 5.4 (4.5-11.0) X10^3/uL RBC 4.38 L (4.5-5.9) X10^6/uL Hgb 14.5 (13.5-17.5) g/dL Hct 41.9 (41-53) % MCV 95.5 (80-100) fL MCH 33.1 (26-34) PG MCHC 34.6 (30-36) % RDW 13.1 (11.6-14.8) % Plt Count 157 (150-400) X10^3/uL Neut % (Auto) 67.2 (50-75) % Lymph % (Auto) 23.2 L (25-40) % Early % (Auto) 7.7 (3-14) % Eos % (Auto) 0.9 L (2-4) % Baso % (Auto) 1.0 (0-2) % Neut # (Auto) 3600 (8194-0830) /uL Lymph # (Auto) 1200 (7592-8060) /uL Early # (Auto) 400 (0-900) /uL Eos # (Auto) 100 (0-450) /uL Baso # (Auto) 100 (0-100) /uL PT 11.2 (9.4-12.5) SECONDS INR 1.0 (0.9-1.3) APTT 30 (25.1-36.5) SECONDS Sodium 139 (137-145) mmol/L Potassium 4.0 (3.4-5.1) mmol/L Chloride 106 (98-107) mmol/L Carbon Dioxide 24 (22-32) mmol/L BUN 18 (9-20) mg/dL Creatinine 0.93 (0.66-1.25) mg/dL Estimated GFR > 60 (>60) mL/min BUN/Creatinine Ratio 19.4 (6-22) Glucose 124 H (70-99) mg/dL Calcium 9.1 (8.4-10.2) mg/dL Total Bilirubin 0.6 (0.2-1.3) mg/dL AST 29 (17-59) IU/L ALT 26 (<50) IU/L Alkaline Phosphatase 55 (38-126) U/L Total Creatine Kinase 85 (55-170) U/L Troponin I < 0.012 (0.01-0.034) ng/mL Total Protein 7.7 (6.3-8.2) g/dL Albumin 4.8 (3.5-5.0) g/dL Globulin 2.9 (1.7-4.1) g/dL Albumin/Globulin Ratio 1.7 (1.0-2.8) Urine Color Yellow Urine Appearance Clear Urine pH 6.5 (4.5-8.0) Ur Specific [place] 1.010 (1.000-1.035) Urine Protein Negative (Negative) Urine Glucose (UA) Negative (Negative) g/dL Urine Ketones Negative (NEGATIVE) Urine Occult Blood Negative (Negative) Urine Nitrate Negative (Negative) Urine Bilirubin Negative (NEGATIVE) Urine Urobilinogen 0.2 (0.2) E.U./dL Ur Leukocyte Esterase Negative (NEGATIVE) Urine RBC 0-1/hpf (0-5/HPF) Urine WBC 0-1/hpf (0-5/HPF) Ur Squamous Epith Cells 0-1 /hpf (0-5/HPF) Urine Bacteria Occasional (0-1) (None) Ur Culture Indicated? Cult not indicated Vol Urine Centrifuged 10ml (spun) Ethyl Alcohol < 10 (<10) mg/dL SARS-CoV-2 (PCR) Negative (Negative) Influenza A (RT-PCR) Flu a negative (NEGATIVE) Influenza B (RT-PCR) Flu b negative (NEGATIVE) RSV (PCR) Negative (Negative) MDM Narrative Medical decision making narrative: 74-year-old male with a episode of loss of memory that is seems to be improving over time. Patient is medication for hypertension, diabetes dyslipidemia no aspirin thinners. Has a NIH is 0. Labs show normal white count, hemoglobin and platelets, PT and INR normal, electrolytes BUN and creatinine are normal glucose is 124 electrolytes are overall appropriate, troponins less than 0.012. ETOH is less than 10 EKG shows sinus rhythm, rate of 73 NH 180 QRS of 96 QTC of 449, no acute ST-elevation or depression. Urine shows 1 red cell 1 white cell [address] shows no acute intracranial process moderate atrophy and chronic microvascular ischemic changes. CT head and neck angio, no significant intracranial arterial abnormality, no significant abnormality with the arteries of the neck. 74-year-old male symptoms seem most consistent with transient global amnesia. Discussed with the patient we would like short term follow up the next 24 hours for re-evaluation. He has not had any additional or return symptoms. Discussed if he has any additional symptoms need to return to the emergency department for re-evaluation. Contacted patients physician Dr. Camarena about short term follow up Discharge Plan Departure Patient Disposition: Home Clinical Impression: Altered mental status Instructions: DI for Transient Global Amnesia Activity Restrictions/Additional Instructions: Follow up with your primary care physician, please call 1st thing in the morning to set up a follow up appointment. I suspect you had an episode of transient global amnesia. If you have any additional episodes you do need to be re-evaluated. Continue your home medications as prescribed. Please return for new changes to mentation, any new altered mental status, severe headaches, fevers, difficulty with speech, difficulty with movement, loss of bowel or bladder control, persistent vomiting or other new or concerning changes. Prescriptions: No Action [MULTIVITAMIN] PO QDAY Qty: 0 [VITAMIN D] PO QDAY Qty: 0 ascorbic acid (vitamin C) 500 MG tablet 500 mg PO QDAY Qty: 0 sodium,potassium,mag sulfates [Suprep Bowel Prep Kit] 17.5-3.13-1.6 gram recon soln See Rx Instructions PO .COMPLEX Qty: 354 0RF Rx Instructions: take as directed by Physician lisinopril 10 mg tablet 10 mg PO DAILY acyclovir 800 mg tablet 800 mg PO TID omeprazole 20 mg capsule,delayed release(DR/EC) 20 mg PO DAILY Referrals: Glenroy Camarena MD [Primary Care Provider, [facility]] Stand Alone Forms: Patient Portal/API
[2025-07-10 19:04] LABS: Add Manual Diff / Slide Review NO; Hematocrit 41.9 % (41-53); Hemoglobin 14.5 g/dL (13.5-17.5); Lymphocytes Absolute Auto 1200 /uL (1100-4500); Mean Corpuscular HGB Conc 34.6 % (30-36); Mean Corpuscular Hemoglobin 33.1 PG (26-34); Mean Corpuscular Volume 95.5 fL (80-100); Platelet Count 157 X10^3/uL (150-400)
[2025-07-10 19:08] LABS: INR 1.0 (0.9-1.3); Prothrombin Time 11.2 SECONDS (9.4-12.5)
[2025-07-10 19:11] LABS: PTT Partial Thromboplastin Tim 30 SECONDS (25.1-36.5)
[2025-07-10 19:14] LABS: Alanine Aminotransferase 26 IU/L (<50); Albumin 4.8 g/dL (3.5-5.0); Albumin Globulin Ratio 1.7 (1.0-2.8); Alkaline Phosphatase 55 U/L (38-126); Blood Urea Nitrogen 18 mg/dL (9-20); Calcium 9.1 mg/dL (8.4-10.2); Carbon Dioxide 24 mmol/L (22-32); Chloride 106 mmol/L (98-107); Creatine Kinase 85 U/L (55-170); Estimated Glomerular Filt Rate > 60 mL/min (>60); Ethanol (ETOH) < 10 mg/dL (<10); Globulin 2.9 g/dL (1.7-4.1); Glucose 124 mg/dL (70-99); HEMOLYSIS < 15 (0-50); Potassium 4.0 mmol/L (3.4-5.1); Sodium 139 mmol/L (137-145); Total Protein 7.7 g/dL (6.3-8.2)
[2025-07-10 19:26] LABS: Troponin I < 0.012 ng/mL (0.01-0.034)
[2025-07-10] MEDS: SODIUM CHLORIDE 0.9% 1,000 ML 150 ML IV (19:49)
[2025-07-10 20:20] LABS: Appearance Urine UA CLEAR; Bilirubin Urine UA NEGATIVE (NEGATIVE); Color Urine UA YELLOW; Glucose Urine UA NEGATIVE (Negative); Ketones Urine UA NEGATIVE (NEGATIVE); Leukocyte Esterase Urine UA NEGATIVE (NEGATIVE); Nitrite Urine UA NEGATIVE (Negative); Occult Blood Urine UA NEGATIVE (Negative); Protein Urine UA NEGATIVE (Negative); Specific Gravity Urine UA 1.010 (1.000-1.035); Urobilinogen Urine UA 0.2 E.U./dL (0.2); pH Urine UA 6.5 (4.5-8.0)
[2025-07-10 20:27] LABS: Culture Indicated Urine Cult Not Indicated
[2025-07-10 20:51] LABS: COVID-19 CEPHEID 4-PLEX PCR Negative (Negative); Influenza A - CEPHEID Flu A NEGATIVE (NEGATIVE); Influenza B - CEPHEID Flu B NEGATIVE (NEGATIVE)
== END 2025-07-10 21:19 | disposition home or self-care (01) ==
PROVIDERS: Emergency Provider Emergency Medicine; Family Provider Family Medicine; PCP Family Medicine
DX: R41.82 Altered mental status, unspecified (principal)
CPT/HCPCS: 36415; 70450; 70496; 70498; 80053; 80320; 81001; 82550; 84484; 85025; 85610; 85730; 87637; 93005; 99284; J7030; Q9967

== ENCOUNTER → 2025-07-24 11:18 | Outpatient (CLI) | payer MEDICARE, OTHER, SELFPAY ==
--- NOTE | 2025-07-24 11:20 | DI.MRI.S_ITS ---
PROCEDURE: MR STROKE Pre- and post-contrast brain MRI, non-contrast brain MR angiogram, pre- and postcontrast neck MR angiogram INDICATIONS: Transient global amnesia TECHNIQUE: Brain: Noncontrast axial T1 spin echo, axial T2 fast spin echo, sagittal and axial FLAIR, coronal T2 fast spin echo, axial gradient echo, axial diffusion and ADC through the brain. After the administration of contrast, axial 3D VIBE of the cranial vasculature and brain. Brain MRA: Non-contrast 3-D time of flight MR angiogram, with multiple zhtedwt-aerjdjwvv-cirxtowzyf (MIP) reformats performed. Neck MRA: Axial and sagittal TruFISP through the neck. Coronal dynamic MR angiogram during administration of contrast in the arterial and venous phases, with 3- dimenstional efufucl-ooqcvffmb-kgfhtdypef (MIP) reformats constructed from subtraction images. COMPARISON: None. FINDINGS: Image quality: Excellent. BRAIN: CSF spaces: Ventricles are normal in size and shape. Basal cisterns are patent. No extra-axial fluid collections. Brain: No intracranial bleeds or mass effects. Mild age-related global volume loss and chronic microvascular ischemic change. Hoffman-white matter interface is normal. Diffusion weighted images show no acute infarct. Brainstem appears normal. Normal intravascular flow voids are present. No abnormal intracranial enhancement. Skull and face: Calvarial marrow signal is normal. Orbits appear normal. Sinuses: Sxpm-zi-qdvrvxqm diffuse paranasal sinus mucosal thickening. Small air-fluid levels within the maxillary sinus. mastoids are clear. BRAIN MR ANGIOGRAM: Anterior circulation: Intracranial internal carotid arteries are normal in size and enhancement. The flow within the paired anterior cerebral arteries is normal and symmetric. The flow within the middle cerebral arteries is normal and symmetric. The anterior communicating artery is seen. No stenoses, occlusions, or aneurysms. Posterior circulation: The visualized portions of the vertebral arteries demonstrate normal caliber, and join to form a normal appearing basilar artery. The flow within the posterior cerebral arteries is normal and symmetric. No stenoses, occlusions, or aneurysms. NECK MR ANGIOGRAM: Carotids: Great vessels demonstrate a conventional anatomy as they arise from the aortic arch. The origins of the common carotid arteries appear patent. The calibers and courses of both common carotid arteries are normal. The bifurcation regions appear normal bilaterally. The internal carotid arteries demonstrate normal course and caliber. Posterior circulation: The origins of the vertebral arteries appear patent. More superior portions of both vertebral arteries demonstrate normal course and caliber, and join to form a normal appearing basilar artery. Miscellaneous: Subclavian arteries appear patent. Limited precontrast images through the neck show no significant soft tissue abnormalities. IMPRESSION: BRAIN MRI: No acute or subacute infarct. No acute intracranial abnormalities or abnormal intracranial enhancement. Mild age-related global volume loss and chronic microvascular ischemic change. Sinusitis with air-fluid levels in the maxillary sinuses, correlate for acute sinusitis. BRAIN MR ANGIOGRAM: No significant arterial abnormalities. NECK MR ANGIOGRAM: No significant arterial abnormalities. Approved by: Darius Cobb M.D. on 07/24/2025 at 15:18
== END ==
LOC: MRI 11:19
PROVIDERS: Family Provider Family Medicine; PCP Family Medicine; Referring Provider Family Medicine; Visit Provider Family Medicine
DX: G45.4 Transient global amnesia (principal); J32.0 Chronic maxillary sinusitis
CPT/HCPCS: 70544; 70549; 70553; A9579